=== PATIENT | male | born 1965 | race African-American/Black ===

== ENCOUNTER 2016-06-09 12:28 | Emergency (ER) | payer BC ==
[~2016-06-09] VITALS: Ht 188 cm; Wt 99.8 kg
[~2016-06-09 12:28] MED LIST: MEDROL 4MG. DOSE4 MG PO
--- OUTSIDE RECORDS SUMMARY | 2016-06-09 12:37 | External Medical Summary Rpt ---
Demographics Preferred Language Unknown Marital Status Unknown Zoroastrian Affiliation Unknown Race Unknown Ethnic Group Unknown Author Author [facility]IZABETH Box, [facility] [employer] Organization [facility] [employer] Address Unknown Phone Unavailable
--- OUTSIDE RECORDS SUMMARY | 2016-06-09 12:37 | External Medical Summary Rpt ---
Demographics Preferred Language French Marital Status Unknown Jehovah'S Witness Affiliation Unknown Race Unknown Ethnic Group Unknown Author Author , Organization [employer] Address Unknown Phone Unavailable Purpose Continuity of Care Document - through 2016 Immunization No patient found.
--- OUTSIDE RECORDS SUMMARY | 2016-06-09 12:37 | External Medical Summary Rpt ---
Author Author [employer] Organization [employer] Address Unknown Phone Unavailable Purpose Continuity of Care Document - through 2016
--- OUTSIDE RECORDS SUMMARY | 2016-06-09 12:37 | External Medical Summary Rpt ---
Demographics Preferred Language Wallisian Marital Status Unknown Restorationist Affiliation Unknown Race Unknown Ethnic Group Unknown Author Author , Organization [employer] Address Unknown Phone Unavailable Purpose Continuity of Care Document - through 2016
--- OUTSIDE RECORDS SUMMARY | 2016-06-09 12:37 | External Medical Summary Rpt ---
Demographics Preferred Language German Marital Status Unknown Confucianism Affiliation Unknown Race Unknown Ethnic Group Unknown Author Author , Organization [employer] Address Unknown Phone Unavailable Purpose Continuity of Care Document - through 2016
--- OUTSIDE RECORDS SUMMARY | 2016-06-09 12:37 | External Medical Summary Rpt ---
Demographics Preferred Language Sami Marital Status Unknown Evangelical Affiliation Unknown Race Unknown Ethnic Group Unknown Author Author , Organization [employer] Address Unknown Phone Unavailable Purpose Continuity of Care Document - through 2016 Immunization No patient found.
--- OUTSIDE RECORDS SUMMARY | 2016-06-09 12:37 | External Medical Summary Rpt ---
Demographics Preferred Language Unknown Marital Status Unknown Scientologist Affiliation Unknown Race Unknown Ethnic Group Unknown Author Author ELIZABETH Box, [employer] [employer] Organization [employer] Address Unknown Phone Unavailable
--- NOTE | 2016-06-09 12:50 | Urgent Treatment Center Report ---
History of Present Issue Date/Time Seen by Provider 06/09/16 1244 Visit Reason Pt arrived:Walked Presenting Problem:PT WANTED TO F/U FOR A DX OF GOUT IN HIS HAND. PT ADVISES THAT HE IS STILL UNABLE TO GO TO WORK Location if Accident: Onset of symptoms date/time:/ or onset unknown for:MEDICAL HX UNKNOWN Have you (or family members/close friends) recently traveled outside the [place]? N If Yes, where/when: Have you had exposure to infectious disease within the past month? TB? Other? Specify: Patient states that he was told to follow up in a couple days for gout in his left Hand. Fawntent states that hand is still swollen however it is better than what it was when he was first seen. 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 No Angina: No [place]: No Hypertension? Yes Hyperlipidemia? No CHF? No DVT? No PE? No COPD? No Asthma? No Anemia? No GERD? No Gastric ulcers? No GI Bleed? No Hernia? No Thyroid Problems? No Hypothyroidism? No CVA? No Seizures? No Diabetes? No Renal Insuffiency? No UTI? No Stones? No BPH? No GB Disease: No Nephritic Syndrome? No Asplenia? No Hepatitis? No Sickle Cell Disease? No Arthritis? No Migraines? No Cataracts? No Glaucoma? No MRSA? No HIV? No TB? No Anxiety? No Depression? No Cancer? No More? 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 No: respiratory distress. Cardiovascular normal exam, regular rate/rhythm, no peripheral edema Neurologic alert, manager voice II-XII nml as tested, normal exam, no motor/sensory deficits, oriented x 3 Comments Patient state that he was recently seen for gout flare, states that hand is doing much better however still swollen and hard to close hand Medical Decision Making LABS/Meds/Orders Pt receiving controlled substance in ED? 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 Departure Departure Time of Disposition 1246 Disposition DC Home or Self Care(routine) Clinical Impression Primary Impression: Gout flare Qualifiers: Gout site: hand Gout etiology: unspecified cause Laterality: left Qualified Code: M10.9 - Gout, unspecified Condition STABLE Patient Instructions DI for Gout, Gout (Alternative Therapy) Additional Instructions Obtain family doctor the list that was provided to monitor and treat current chronic conditions Return if needed Continue taking medication as prescribed Discharge Counseling Counseled pt/family regarding diagnosis, home care, follow up needs at [phone]
--- NOTE | 2016-06-09 12:50 | Urgent Treatment Center Report ---
History of Present Issue Date/Time Seen by Provider 06/09/16 1244 Visit Reason Pt arrived:Walked Presenting Problem:PT WANTED TO F/U FOR A DX OF GOUT IN HIS HAND. PT ADVISES THAT HE IS STILL UNABLE TO GO TO WORK Location if Accident: Onset of symptoms date/time:/ or onset unknown for:MEDICAL HX UNKNOWN Have you (or family members/close friends) recently traveled outside the [place]? N If Yes, where/when: Have you had exposure to infectious disease within the past month? TB? Other? Specify: Patient states that he was told to follow up in a couple days for gout in his left Hand. Fawntent states that hand is still swollen however it is better than what it was when he was first seen. 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 No Angina: No [place]: No Hypertension? Yes Hyperlipidemia? No CHF? No DVT? No PE? No COPD? No Asthma? No Anemia? No GERD? No Gastric ulcers? No GI Bleed? No Hernia? No Thyroid Problems? No Hypothyroidism? No CVA? No Seizures? No Diabetes? No Renal Insuffiency? No UTI? No Stones? No BPH? No GB Disease: No Nephritic Syndrome? No Asplenia? No Hepatitis? No Sickle Cell Disease? No Arthritis? No Migraines? No Cataracts? No Glaucoma? No MRSA? No HIV? No TB? No Anxiety? No Depression? No Cancer? No More? 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 No: respiratory distress. 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 Departure Departure Time of Disposition 1246 Disposition DC Home or Self Care(routine) Clinical Impression Primary Impression: Gout flare Qualifiers: Gout site: hand Gout etiology: unspecified cause Laterality: left Qualified Code: M10.9 - Gout, unspecified Condition STABLE Patient Instructions DI for Gout, Gout (Alternative Therapy) Additional Instructions Obtain family doctor the list that was provided to monitor and treat current chronic conditions Return if needed Continue taking medication as prescribed Discharge Counseling Counseled pt/family regarding diagnosis, home care, follow up needs at [phone]
[2016-06-09 13:01] VITALS: BP 156/111
[2016-06-17] MEDS ORDERED: COLCRYS0.6 M1 PO (20:19)
[2016-06-17] MEDS ORDERED: PREDNISONE 20MG20 MG PO (20:19)
== END 2016-06-09 13:02 | disposition home or self-care (01) ==
LOC: UTC 12:28
DX: M10.9 Gout, unspecified (principal); I10 Essential (primary) hypertension

== ENCOUNTER → 2016-06-22 | Outpatient (CLI) | payer BC ==
[~2016-06-22] MED LIST changes: +COLCRYS0.6 M1 PO; +PREDNISONE 20MG20 MG PO
[2016-06-22 15:28] LABS: HEMOGLOBIN 16.6 g/dL (14.1-18.0); LYMPH # 1.4 K/mm3 (0.7-4.5); LYMPH % 11.2 % (10-50)
[2016-06-22 18:26] LABS: BUN 16 mg/dL (7-18)
[2016-06-22 18:28] LABS: GFR (ESTIMATED) 70 ML/MIN (>60)
[2016-06-24 08:55] LABS: Creatinine, Urine 192.8 mg/dL (Not Estab.); Microalbumin, Urine 45.7 ug/mL (Not Estab.)
== END ==
LOC: LAB 15:11
PROVIDERS: Nurse Practitioner Family
DX: Z00.00 Encounter for general adult medical examination without abnormal findings (principal); N18.9 Chronic kidney disease, unspecified; M10.9 Gout, unspecified

== ENCOUNTER → 2016-08-02 | Outpatient (CLI) | payer BC ==
[~2016-08-02] MED LIST changes: +PREDNISONE 10MG10 MG PO
[2016-08-02 13:52] LABS: BUN 21 mg/dL (7-18); GFR (ESTIMATED) 53 ML/MIN (>60)
== END ==
LOC: LAB 11:13
PROVIDERS: Nurse Practitioner Family
DX: I10 Essential (primary) hypertension (principal)

== ENCOUNTER → 2016-10-15 | Day surgery (SDC) | payer BC ==
[2016-10-15 08:09] LABS: LYMPH % 47.6 % (10-50)
[2016-10-15 08:14] LABS: HEMOGLOBIN 14.2 g/dL (14.1-18.0)
[2016-10-15 08:17] LABS: BUN 23 mg/dL (7-18)
[2016-10-15 08:21] LABS: GFR (ESTIMATED) 45 ML/MIN (>60)
--- NOTE | 2016-10-15 11:12 | RADIOLOGY REPORT PS360 ---
CARDIAC CATHETERIZATION DATE OF CATHETERIZATION:10/15/2016 10:09 AM PROCEDURES: 1. Left heart catheterization 2. Left ventriculogram 3. Selective coronary angiogram INDICATION FOR TEST: 1. Abnormal high risk Myoview 2. Abnormal EKG Informed consent was obtained prior to the procedure. COMPLICATIONS: None ESTIMATED BLOOD LOSS: Less than 10 ml. TECHNIQUE: One percent lidocaine used to anesthetize the right anterior aspect of the wrist. The right radial artery was accessed via the Seldinger technique. A 6 German sheath was placed in the right radial artery. 2.5 mg of verapamil, 800 mcg of nitroglycerin and 5000 U Heparin were given through the arterial sheath. The Rebecca catheter was also used to perform left heart catheterization and left ventriculography. At the end of the procedure the patient was transferred to the post-op holding area in stable condition for arterial sheath removal. ANGIOGRAPHIC RESULTS: 1. The left main artery normal 2. The left anterior descending artery is proximally normal and then has a 20% smooth stenosis after the first septal fermenter wine 3. The circumflex artery is nondominant and has a mild mid vessel 10% nonflow limiting stenosis 4. The right coronary artery is dominant and has a mid vessel 10% stenosis in the distal 10% stenosis 5. The TOMLINSON ventriculogram reveals normal 60% 6. The left ventricular end-diastolic pressure 15 mmHg IMPRESSION: 1. Nonflow limiting coronary artery disease . 2. Normal ejection fraction 3. Mildly elevated LVEDP PLAN: 1. Risk factor modification 2. Daily baby aspirin 3. LDL less than 55
--- NOTE | 2016-10-15 11:12 | RADIOLOGY REPORT PS360 ---
CARDIAC CATHETERIZATION DATE OF CATHETERIZATION:10/15/2016 10:09 AM PROCEDURES: 1. Left heart catheterization 2. Left ventriculogram 3. Selective coronary angiogram INDICATION FOR TEST: 1. Abnormal high risk Myoview 2. Abnormal EKG Informed consent was obtained prior to the procedure. COMPLICATIONS: None ESTIMATED BLOOD LOSS: Less than 10 ml. TECHNIQUE: One percent lidocaine used to anesthetize the right anterior aspect of the wrist. The right radial artery was accessed via the Seldinger technique. A 6 [place] sheath was placed in the right radial artery. 2.5 mg of verapamil, 800 mcg of nitroglycerin and 5000 U Heparin were given through the arterial sheath. The Rebecca catheter was also used to perform left heart catheterization and left ventriculography. At the end of the procedure the patient was transferred to the post-op holding area in stable condition for arterial sheath removal. ANGIOGRAPHIC RESULTS: 1. The left main artery normal 2. 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 The circumflex artery is nondominant and has a mild mid vessel 10% nonflow limiting stenosis 4. The right coronary artery is dominant and has a mid vessel 10% stenosis in the distal 10% stenosis 5. The TOMLINSON ventriculogram reveals normal 60% 6. The left ventricular end-diastolic pressure 15 mmHg IMPRESSION: 1. Nonflow limiting coronary artery disease . 2. Normal ejection fraction 3. Mildly elevated LVEDP PLAN: 1. Risk factor modification 2. Daily baby aspirin 3. LDL less than 55
[2016-10-15 14:35] VITALS: BP 105/72
== END ==
LOC: CATHLAB 07:31
PROVIDERS: Internal Medicine
PROC: B2111ZZ Fluoroscopy of Multiple Coronary Arteries using Low Osmolar Contrast (ICD-10-PCS; 2016-10-15)
PROC: B2151ZZ Fluoroscopy of Left Heart using Low Osmolar Contrast (ICD-10-PCS; 2016-10-15)
PROC: 4A023N7 Measurement of Cardiac Sampling and Pressure, Left Heart, Percutaneous Approach (ICD-10-PCS; principal; 2016-10-15 08:30)
DX: R07.9 Chest pain, unspecified (principal); I42.9 Cardiomyopathy, unspecified; R94.31 Abnormal electrocardiogram [ECG] [EKG]; R94.39 Abnormal result of other cardiovascular function study; I10 Essential (primary) hypertension
CPT/HCPCS: C1725; C1769; J1644; Q9967

== ENCOUNTER 2016-10-25 17:22 | Emergency (ER) | payer BC ==
[~2016-10-25] VITALS: Ht 188 cm; Wt 97.5 kg
[2016-10-25 18:31] LABS: HEMOGLOBIN 13.7 g/dL (14.1-18.0); LYMPH # 1.7 K/mm3 (0.7-4.5); LYMPH % 34.9 % (10-50)
--- NOTE | 2016-10-25 18:48 | Emergency Room Report ---
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 N Clinical Suspician of Infection? N Mental Status: 1 - Regular (Normal Baseline) Sepsis Risk:Low Sepsis Risk Have you (or family members/close friends) recently traveled outside the [place]? N If Yes, where/when: Have you had exposure to infectious disease within the past month? N TB? Other? Specify: Chest pain episode last night at rest, lasted ten minutes then resolved; SS, nonradiating, no n/v, no diaphoresis, no SOB, no calf pain, had a LHC on 10/15/[address] flow. Pt of Dr. Danielson, non smoker, has HTN, denies DM, reports hyperlipidemia, unknown FH on dad's side, thinks maybe mom had CAD. He had a similar epsiode at around 15:30 today that also lasted a few minutes at rest. No complaints now. Ate a lot of BBQ today. Patient states he has been directed to decrease his Lisinopril by Dr. Danielson. ALLERGIES Coded Allergies: No Known Allergies (06/07/16) Home Medications Active Scripts Prednisone (Prednisone 10MG) 1 Dose PO DAILY #21 TAB Prov: 08/04/16 History Medical History General CAD? No Angina: No [place]: No Hypertension? Yes Hyperlipidemia? No CHF? No DVT? No PE? No COPD? No Asthma? No Anemia? No GERD? No Gastric ulcers? No GI Bleed? No Hernia? No Thyroid Problems? No Hypothyroidism? No CVA? No Seizures? No Diabetes? No Renal Insuffiency? No End Stage Renal Disease? No UTI? No Stones? No BPH? No GB Disease: No Nephritic Syndrome? No Asplenia? No Hepatitis? No Sickle Cell Disease? No Arthritis? No Migraines? No Cataracts? No Glaucoma? No MRSA? No HIV? No TB? No Anxiety? No Depression? No Cancer? No More? 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 Immunization Hx DT/Tetanus Unknown Flu Refused Pneumonia Refuses Surgical Hx Previous Surgery?Y R KNEE ORTHOSCOPY Family History Family Hx Diabetes No CAD No Hypertension No Hyperlipidemia No Cancer No TB No Social History Smoking Hx Smoker: Never Smoker Tobacco: No Are you/the child exposed to second-hand smoke: No Alcohol Alcohol: No Review of Systems All Other Systems Reviewed and Negative Cardiovascular see HPI Physical Exam Vital Signs Vital Signs Date Time Temp Pulse Resp B/P Pulse O2 O2 Flow FiO2 Ox Delivery Rate 10/26 1935 74 16 164/121 100 10/25 1840 74 16 167/117 99 10/25 1802 56 16 188/91 96 10/25 1723 98.9 80 18 173/120 100 General Appearance normal appearance, WD/WN, no apparent distress Eye Exam - bilateral eye normal exam, bilateral eye PERRL, bilateral eye EOMI Neck normal inspection, non-tender, supple, full range of motion Respiratory Status Yes: trachea midline, chest symmetrical, non tender chest. No: respiratory distress, tender on palpation, use of accessory muscles, pain on inspiration, pain on expiration, productive cough, non productive cough. Lung Sounds bilateral: normal breath sounds, lungs clear. Cardiovascular normal exam, regular rate/rhythm, no peripheral edema, no gallop, no JVD, no murmur, no rub, normal peripheral pulses Gastrointestinal normal bowel sounds, normal exam, non tender, soft, no organomegaly, no pulsatile mass, no guarding, no rebound Extremities non-tender, normal range of motion, normal inspection, no calf tenderness, no pedal edema Strength 5 Upper Ext (L), 5 Upper Ext (R), 5 Lower Ext (L), 5 Lower Ext (R) Neurologic alert, normal exam, no motor/sensory deficits, oriented x 3 Glascow Coma Scale Glascow Coma Scale Response Value EYE response: 4 Spontaneously 4 MOTOR response: 6 OBEYS 6 VERBAL response: 5 Oriented & Converses 5 Total 15 Skin intact, normal color, warm/dry Medical Decision Making LABS/Meds/Orders Pt receiving controlled substance in ED? No Results/Orders Laboratory Tests 10/25/161929: Troponin I < 0.02 10/25/161842: Troponin I Cancelled 10/25/160: Sodium 144, Potassium 3.6, Chloride 108 H, Carbon Dioxide 28, BUN 21 H, Creatinine 1.5 H, Estimated Creat Clear 79, Estimated GFR (MDRD) 49, Glucose 103, Calcium 8.9, Total Bilirubin 0.5, AST 12 L, ALT 17, Alkaline Phosphatase 90, Creatine Kinase 196, CK-MB (CK-2) Rel Index 0.4, CK and CKMB Interp 0.7, Troponin I < 0.02, Total Protein 7.0, Albumin 3.7, Globulin 3.3 H, Albumin/ Globulin Ratio 1.1, WBC 4.9, RBC 5.03, Hgb 13.7 L, Hct 40.1 L, MCV 79.8 L, RDW 13.1, Plt Count 214, MPV 8.5, Gran % 53.3, Gran # 2.6, Lymphocytes % 34.9, Monocytes % 9.0, Eosinophils % 1.9, Basophils % 0.9, Lymphocytes # 1.7, Monocytes # 0.4, Eosinophils # 0.1, Basophils # 0.0, PUBS MCHC 34.1, MCH 27.3 Current Medication Orders Sig/Feliciano Start time Last Medication Dose Route Stop Time Status Admin Clonidine HCl 0 .STK-MED ONE 10/25 190 DC .ROUTE Clonidine HCl 0.1 MG ONCE ONE 10/25 1845 DC 10/25 PO 10/25 1846 1907 Aspirin 243 MG ONCE ONE 10/25 1745 DC 10/25 PO 10/25 1746 1738 Sodium Chloride 10 ML PRN PRN 10/25 174 AC IV 10/26 173 Aspirin 0 .STK-MED ONE 10/25 173 DC .ROUTE Orders Procedure Date/time Status TROPONIN I 10/25 1930 Complete 12 LEAD EKG-HEIDI (INITIAL) 10/25 173 Active ELECTROCARDIOGRAM REQUEST 10/25 173 Active CHEST(2 VIEWS-NOT PORTABLE) 10/25 173 Active IV SALINE LOCK 10/25 173 Active CBC WITH AUTO DIFF 10/25 173 Complete CARDIAC ENZYMES 10/25 173 Complete CHEM 12 PROFILE 10/25 1735 Complete CM/EKG CM/EKG EKG rate (no change from 09/15/16), NSR, rhythm, no ectopy, normal QRS, normal [place], normal EKG (bifasc. block) XRAY/CT/US XRAY/CT/US XRAY chest XR interpretation by reviewed by me Xray Results normal/NAD, no fracture seen, no infiltrates, normal heart size, normal lung inflation luis miguel Progress ED Progress Notes 1 Date 10/25/16 Time 2003 Comment Pt advised to increase his Lisinopril from BID to TID and to have BP rechecked in 24 hours by Deloris and also keep appointment in four days with Dr. Danielson ED Progress Notes 2 Date 10/25/16 Time 2005 Comment No chest pain; no complaints; stable at d/c Departure Departure Time of Disposition 2003 Disposition DC Home or Self Care(routine) Clinical Impression Primary Impression: Angina at rest Condition STABLE Referrals Aleksandra BRIDGES,Jasbir Danielson MD, [place] Patient Instructions Angina Additional Instructions Increase your Lisinopril from twice daily to three times daily, have Deloris recheck blood pressure in 1-2 days, and keep your appointment with Dr. Danielson for four days from now. Discharge Counseling Counseled pt/family regarding diagnosis, test results, medications/RX, home care, follow up needs ED Critical Care Critical Care No at 2006
[2016-10-25 18:56] LABS: BUN 21 mg/dL (7-18)
[2016-10-25 18:58] LABS: GFR (ESTIMATED) 49 ML/MIN (>60)
[2016-10-25 20:10] VITALS: BP 164/114
--- NOTE | 2016-10-25 23:36 | RADIOLOGY REPORT PS360 ---
CHEST(2 VIEWS-NOT PORTABLE) HISTORY: Chest pain PAIN ORDERING PHYSICIAN: Nilda Henderson MD PATIENT AGE: 51 years COMPARISON: None available FINDINGS: The cardiomediastinal silhouette and pulmonary vascularity are within normal limits. On the lateral view there is increased density over the age or hilar area. This may limited due to vessel overlap. A hilar mass or pneumonia is not excluded. There is reversal of the lower thoracic kyphosis. IMPRESSION: Increased density over the intercondylar hilum on the lateral view which could be due to summation density, pneumonia, or mass. Follow-up radiograph recommended. If this persists then, CT may be needed for further evaluation
--- OUTSIDE RECORDS SUMMARY | 2016-11-17 07:03 | External Medical Summary Rpt ---
Demographics Preferred Language Sami Marital Status Unknown Sikh Affiliation Unknown Race Unknown Ethnic Group Unknown Author Author ELIZABETH Address Unknown Phone Immunization No patient found.
--- OUTSIDE RECORDS SUMMARY | 2016-11-17 07:03 | External Medical Summary Rpt ---
Author Author ELIZABETH Address Unknown Phone [email or web address] Purpose Continuity of Care Document - 06-22-2016 through 2016 Problems Code Diagnosis DOS Provider Status I20.8 OTHER FORMS OF ANGINA PECTORIS
--- OUTSIDE RECORDS SUMMARY | 2016-11-17 07:03 | External Medical Summary Rpt ---
Author Author ELIZABETH Address Unknown Phone [email or web address] Purpose Continuity of Care Document - 06-22-2016 through 2016 Problems Code Diagnosis DOS Provider Status I20.8 OTHER FORMS OF ANGINA PECTORIS
--- OUTSIDE RECORDS SUMMARY | 2016-11-17 07:03 | External Medical Summary Rpt ---
Demographics Preferred Language Indonesian Marital Status Unknown Protestant Affiliation Unknown Race Unknown Ethnic Group Unknown Author Author ELIZABETH Address Unknown Phone Immunization No patient found.
--- OUTSIDE RECORDS SUMMARY | 2016-11-17 07:04 | External Medical Summary Rpt ---
Author Author ELIZABETH Production, ELIZABETH Production Organization ELIZABETH [employer] Address Unknown Phone Unavailable Results CBC W Auto Differential panel in Blood Observa Value Referen Units Interpr Notes Date tion ce etation Range Basophils 0 - 0.2 K/MM3 Normal No Sep 18 informati 2017 5:30 [#/volume on in PM ] in source Blood by data Automated count Basophils 0.1 - 2.0 % Normal No Sep 18 /100 informati 2017 5:30 leukocyte on in PM s in source Blood by data Automated count Eosinophi 0.0 - 0.4 K/mm3 Normal No Sep 18 ls informati 2017 5:30 [#/volume on in PM ] in source Blood by data Automated count Eosinophi 0.1 - % Normal No Sep 18 ls/100 12.0 informati 2017 5:30 leukocyte on in PM s in source Blood by data Automated count Granulocy 1.3 - 8.0 K/mm3 Normal No Sep 18 sapna informati 2017 5:30 [#/volume on in PM ] in source Blood by data Automated count Granulocy 37.0 - % Normal No Sep 18 sapna/100 80.0 informati 2017 5:30 leukocyte on in PM s in source Blood by data Automated count Hematocri 42.0 - % Low No Sep 18 t [Volume 52.0 informati 2017 5:30 on in PM Fraction] source of Blood data Hemoglobi 14.1 - g/dL Low No Sep 18 n 18.0 informati 2017 5:30 [Mass/vol on in PM ume] in source Blood data Lymphocyt 0.7 - 4.5 K/mm3 Normal No Sep 18 es informati 2017 5:30 [#/volume on in PM ] in source Unspecifi data ed specimen by Automated count Lymphocyt 10 - 50 % Normal No Sep 18 es informati 2017 5:30 [#/volume on in PM ] in source Unspecifi data ed specimen by Automated count Erythrocy 27 - 31.2 pg Normal No Sep 18 te mean informati 2016 5:30 corpuscul on in PM ar source hemoglobi data n [Entitic mass] Erythrocy 31.8 - g/dl Normal No Sep 18 te mean 35.4 informati 2017 5:30 corpuscul on in PM ar source hemoglobi data n concentra tion [Mass/vol ume] by Automated count Erythrocy 82.2 - fl Low No Sep 18 te mean 97.8 informati 2016 5:30 corpuscul on in PM ar volume source [Entitic data volume] by Automated count Monocytes 0.1 - 1.0 K/mm3 Normal No Sep 18 informati 2017 5:30 [#/volume on in PM ] in source Blood by data Automated count Monocytes 1.7 - 9.3 % Normal No Sep 18 /100 informati 2017 5:30 leukocyte on in PM s in source Blood by data Automated count Platelet 7.4 - fl Normal No Sep 18 mean 10.4 informati 2016 5:30 volume on in PM [Entitic source volume] data in Blood by Automated count Platelets 142 - 424 K/mm3 Normal No Sep 18 informati 2017 5:30 [#/volume on in PM ] in source Blood data Erythrocy 4.6 - 6.2 M/mm3 Normal No Sep 18 sapna informati 2017 5:30 [#/volume on in PM ] in source Amniotic data fluid Erythrocy 11.5 - % Normal No Sep 18 te 17.5 informati 2016 5:30 distribut on in PM ion width source [Entitic data volume] by Automated count Leukocyte 4.8 - K/MM3 Normal No Sep 18 s 10.8 informati 2016 5:30 [#/volume on in PM ] in source Blood data Basic metabolic panel in Blood Observa Value Referen Units Interpr Notes Date tion ce etation Range Urea 7 - 18 mg/dL High No Sep 8 nitrogen informati 2017 7:55 [Mass/vol on in AM ume] in source Serum or data Plasma Calcium 8.5 - mg/dL Normal No Sep 8 [Mass/vol 10.1 informati 2017 7:55 ume] in on in AM Serum or source Plasma data Chloride 98 - 107 mmoL/L Normal No Sep 8 [Moles/vo informati 2017 7:55 lume] in on in AM Serum or source Plasma data Carbon 21.0 - mmoL/L High No Sep 8 dioxide, 32.0 informati 2017 7:55 total on in AM [Moles/vo source lume] in data Serum or Plasma Creatinin 0.70 - mg/dL High No Sep 8 e 1.30 informati 2017 7:55 [Mass/vol on in AM ume] in source Serum or data Plasma Estimated >60 ML/MIN No REFERENCE Sep 8 informati RANGE: 2017 7:55 glomerula on in >60 AM r source ML/MIN/1. filtratio data 73 SQUARE n rate METERSIf (GF this patient is -A merican, then multiply theresult by 1.210. Glucose 74 - 106 mg/dL Normal No Sep 8 [Mass/vol informati 2017 7:55 ume] in on in AM Serum or source Plasma data Potassium 3.5 - 5.1 mmoL/L Normal No Sep 8 informati 2017 7:55 [Moles/vo on in AM lume] in source Serum or data Plasma Sodium 136 - 145 mmoL/L Normal No Sep 8 [Moles/vo informati 2017 7:55 lume] in on in AM Serum or source Plasma data CBC W Auto Differential panel in Blood Observa Value Referen Units Interpr Notes Date tion ce etation Range Basophils 0 - 0.2 K/MM3 Normal No Sep 8 informati 2017 7:55 [#/volume on in AM ] in source Blood by data Automated count Basophils 0.1 - 2.0 % Normal No Sep 8 /100 informati 2017 7:55 leukocyte on in AM s in source Blood by data Automated count Eosinophi 0.0 - 0.4 K/mm3 Normal No Sep 8 ls informati 2017 7:55 [#/volume on in AM ] in source Blood by data Automated count Eosinophi 0.1 - % Normal No Sep 8 ls/100 12.0 informati 2017 7:55 leukocyte on in AM s in source Blood by data Automated count Granulocy 1.3 - 8.0 K/mm3 Normal No Sep 8 sapna informati 2017 7:55 [#/volume on in AM ] in source Blood by data Automated count Granulocy 37.0 - % Normal No Sep 8 sapna/100 80.0 informati 2017 7:55 leukocyte on in AM s in source Blood by data Automated count Hematocri 42.0 - % Low No Sep 8 t [Volume 52.0 informati 2017 7:55 on in AM Fraction] source of Blood data Hemoglobi 14.1 - g/dL No No Sep 8 n 18.0 informati informati 2017 7:55 [Mass/vol on in on in AM ume] in source source Blood data data Lymphocyt 0.7 - 4.5 K/mm3 Normal No Sep 8 es informati 2017 7:55 [#/volume on in AM ] in source Unspecifi data ed specimen by Automated count Lymphocyt 10 - 50 % Normal No Sep 8 es informati 2017 7:55 [#/volume on in AM ] in source Unspecifi data ed specimen by Automated count Erythrocy 27 - 31.2 pg Normal No Sep 8 te mean informati 2017 7:55 corpuscul on in AM ar source hemoglobi data n [Entitic mass] Erythrocy 31.8 - g/dl Normal No Sep 8 te mean 35.4 informati 2017 7:55 corpuscul on in AM ar source hemoglobi data n concentra tion [Mass/vol ume] by Automated count Erythrocy 82.2 - fl Low No Sep 8 te mean 97.8 informati 2016 7:55 corpuscul on in AM ar volume source [Entitic data volume] by Automated count Monocytes 0.1 - 1.0 K/mm3 Normal No Sep 8 informati 2017 7:55 [#/volume on in AM ] in source Blood by data Automated count Monocytes 1.7 - 9.3 % Normal No Sep 8 /100 informati 2017 7:55 leukocyte on in AM s in source Blood by data Automated count Platelet 7.4 - fl Normal No Sep 8 mean 10.4 informati 2016 7:55 volume on in AM [Entitic source volume] data in Blood by Automated count Platelets 142 - 424 K/mm3 No No Sep 8 informati informati 2017 7:55 [#/volume on in on in AM ] in source source Blood data data Erythrocy 4.6 - 6.2 M/mm3 Normal No Sep 8 sapna informati 2016 7:55 [#/volume on in AM ] in source Amniotic data fluid Erythrocy 11.5 - % Normal No Sep 8 te 17.5 informati 2016 7:55 distribut on in AM ion width source [Entitic data volume] by Automated count Leukocyte 4.8 - K/MM3 Low No Sep 8 s 10.8 informati 2016 7:55 [#/volume on in AM ] in source Blood data Urate [Mass/volume] in Serum or Plasma Observa Value Referen Units Interpr Notes Date tion ce etation Range Urate 2.6 - 7.2 mg/dL High No Aug 04 [Mass/vol informati 2016 6:31 ume] in on in PM Serum or source Plasma data Comprehensive metabolic 2000 panel in Serum or Plasma Observa Value Referen Units Interpr Notes Date tion ce etation Range Albumin/G 1.1 - 1.8 No Normal No Aug 02 lobulin informati informati 2016 [Mass on in on in 11:14 AM ratio] in source source Serum or data data Plasma Albumin 3.4 - 5.0 gm/dL Normal No Aug 02 [Mass/vol informati 2016 ume] in on in 11:14 AM Serum or source Plasma data Alkaline 46 - 116 U/L Normal No Aug 02 phosphata informati 2016 se on in 11:14 AM [Enzymati source c data activity/ volume] in Serum or Plasma Bilirubin 0.2 - 1.0 mg/dL Normal No Aug 02 .total informati 2016 [Mass/vol on in 11:14 AM ume] in source Serum or data Plasma Urea 7 - 18 mg/dL High No Aug 02 nitrogen informati 2016 [Mass/vol on in 11:14 AM ume] in source Serum or data Plasma Calcium 8.5 - mg/dL Normal No Aug 02 [Mass/vol 10.1 informati 2016 ume] in on in 11:14 AM Serum or source Plasma data Chloride 98 - 107 mmoL/L Normal No Aug 02 [Moles/vo informati 2016 lume] in on in 11:14 AM Serum or source Plasma data Carbon 21.0 - mmoL/L Normal No Aug 02 dioxide, 32.0 informati 2016 total on in 11:14 AM [Moles/vo source lume] in data Serum or Plasma Creatinin 0.70 - mg/dL High No Aug 02 e 1.30 informati 2016 [Mass/vol on in 11:14 AM ume] in source Serum or data Plasma Estimated >60 ML/MIN No REFERENCE Aug 02 informati RANGE: 2017 glomerula on in >60 11:14 AM r source ML/MIN/1. filtratio data 73 SQUARE n rate METERSIf (GF this patient is -A merican, then multiply theresult by 1.210. Globulin 1.3 - 3.2 gm/dL High No Aug 02 [Mass/vol informati 2016 ume] in on in 11:14 AM Serum source data Glucose 74 - 106 mg/dL Normal No Aug 02 [Mass/vol informati 2016 ume] in on in 11:14 AM Serum or source Plasma data Potassium 3.5 - 5.1 mmoL/L Low alert Aug 02 2016 [Moles/vo CRITICAL 11:14 AM lume] in RESULTS Serum or Plasma RESU LTS CALLED TO: ADOLPH HEIDI 08/02/16 1352 [facility] Sodium 136 - 145 mmoL/L Normal No Aug 02 [Moles/vo informati 2016 lume] in on in 11:14 AM Serum or source Plasma data Aspartate 15 - 37 U/L Normal No Aug 022016 aminotran on in 11:14 AM sferase source [Enzymati data c activity/ volume] in Serum or Plasma Alanine 12 - 78 U/L Normal No Aug 02 aminotran inform2016 sferase on in 11:14 AM [Enzymati source c data activity/ volume] in Serum or Plasma Protein 6.4 - 8.2 gm/dL Normal No Aug 02 [Mass/vol informati 2016 ume] in on in 11:14 AM Serum or source Plasma data Microalb/Creat Ratio, Randm Ur Observa Value Referen Units Interpr Notes Date tion ce etation Range Microalbu Not ug/mL No No June 22 min Estab. informati informati 2017 3:12 [Mass/vol on in on in PM ume] in source source Urine data data Albumin/C 0.0 - No No INFCE June 22 reatinine 30.0 informati informati Result 2017 3:12 [Mass on in on in Units: PM ratio] in source source mg/g Urine data data creatPerf ormed at: - [facility] [address] [id number] [address] [place], [place] [id number] Relay Assembler: Richar Tomlinson PhD, Phone: [phone] Creatinin Not mg/dL No No June 22 e Estab. informati informati 2017 3:12 [Mass/vol on in on in PM ume] in source source Urine data data Comprehensive metabolic 2000 panel in Serum or Plasma Observa Value Referen Units Interpr Notes Date tion ce etation Range Albumin/G 1.1 - 1.8 No Low No June 22 lobulin informati informati 2016 3:12 [Mass on in on in PM ratio] in source source Serum or data data Plasma Albumin 3.4 - 5.0 gm/dL Normal No June 22 [Mass/vol informati 2016 3:12 ume] in on in PM Serum or source Plasma data Alkaline 46 - 116 U/L Normal No June 22 phosphata informati 2016 3:12 se on in PM [Enzymati source c data activity/ volume] in Serum or Plasma Bilirubin 0.2 - 1.0 mg/dL Normal No June 22 .total informati 2016 3:12 [Mass/vol on in PM ume] in source Serum or data Plasma Urea 7 - 18 mg/dL Normal No June 22 nitrogen informati 2016 3:12 [Mass/vol on in PM ume] in source Serum or data Plasma Calcium 8.5 - mg/dL Normal No June 22 [Mass/vol 10.1 informati 2016 3:12 ume] in on in PM Serum or source Plasma data Chloride 98 - 107 mmoL/L Normal No June 22 [Moles/vo informati 2016 3:12 lume] in on in PM Serum or source Plasma data Carbon 21.0 - mmoL/L Normal No June 22 dioxide, 32.0 informati 2016 3:12 total on in PM [Moles/vo source lume] in data Serum or Plasma Creatinin 0.70 - mg/dL Normal No June 22 e 1.30 informati 2016 3:12 [Mass/vol on in PM ume] in source Serum or data Plasma Estimated >60 ML/MIN No REFERENCE June 22 informati RANGE: 2017 3:12 glomerula on in >60 PM r source ML/MIN/1. filtratio data 73 SQUARE n rate METERSIf (GF this patient is -A merican, then multiply theresult by 1.210. Globulin 1.3 - 3.2 gm/dL High No June 22 [Mass/vol informati 2016 3:12 ume] in on in PM Serum source data Glucose 74 - 106 mg/dL High No June 22 [Mass/vol informati 2016 3:12 ume] in on in PM Serum or source Plasma data Potassium 3.5 - 5.1 mmoL/L Normal No June 222016 3:12 [Moles/vo on in PM lume] in source Serum or data Plasma Sodium 136 - 145 mmoL/L Normal No June 22 [Moles/vo 2016 3:12 lume] in on in PM Serum or source Plasma data Aspartate 15 - 37 U/L Low No June 222016 3:12 aminotran on in PM sferase source [Enzymati data c activity/ volume] in Serum or Plasma Alanine 12 - 78 U/L Normal No June 22 aminotran 2016 3:12 sferase on in PM [Enzymati source c data activity/ volume] in Serum or Plasma Protein 6.4 - 8.2 gm/dL Normal No June 22 [Mass/vol informati 2016 3:12 ume] in on in PM Serum or source Plasma data Lipid 1996 panel in Serum or Plasma Observa Value Referen Units Interpr Notes Date tion ce etation Range Cholester < 200 mg/dL No No June 22 ol informati informati 2016 3:12 [Moles/vo on in on in PM lume] in source source Unspecifi data data ed specimen Cholester 40 - 60 MG/DL High No June 22 ol in HDL informati 2016 3:12 on in PM [Mass/vol source ume] in data Serum or Plasma Cholester 0 - 130 mg/dL Normal No June 22 ol in LDL ati 2016 3:12 on in PM [Mass/vol source ume] in data Serum or Plasma by calculati on Triglycer 30 - 200 mg/dL Normal No June 22 melvina ati 2016 3:12 [Moles/vo on in PM lume] in source Serum or data Plasma Cholester 0 - 40 No Normal No June 22 ol in informati informati 2016 3:12 VLDL on in on in PM [Mass/vol source source ume] in data data Serum or Plasma Urate [Mass/volume] in Serum or Plasma Observa Value Referen Units Interpr Notes Date tion ce etation Range Urate 2.6 - 7.2 mg/dL Normal No June 22 [Mass/vol informati 2016 3:12 ume] in on in PM Serum or source Plasma data CBC W Auto Differential panel in Blood Observa Value Referen Units Interpr Notes Date tion ce etation Range Basophils 0 - 0.2 K/MM3 Normal No June 222016 3:12 [#/volume on in PM ] in source Blood by data Automated count Basophils 0.1 - 2.0 % Normal No June 22 /100 informati 2016 3:12 leukocyte on in PM s in source Blood by data Automated count Eosinophi 0.0 - 0.4 K/mm3 Normal No June 22 ls ati 2016 3:12 [#/volume on in PM ] in source Blood by data Automated count Eosinophi 0.1 - % Normal No June 22 ls/100 12.0 informati 2016 3:12 leukocyte on in PM s in source Blood by data Automated count Granulocy 1.3 - 8.0 K/mm3 High No June 22 sapna informati 2016 3:12 [#/volume on in PM ] in source Blood by data Automated count Granulocy 37.0 - % High No June 22 sapna/100 80.0 informati 2016 3:12 leukocyte on in PM s in source Blood by data Automated count Hematocri 42.0 - % Normal No June 22 t [Volume 52.0 informati 2016 3:12 on in PM Fraction] source of Blood data Hemoglobi 14.1 - g/dL Normal No June 22 n 18.0 ati 2016 3:12 [Mass/vol on in PM ume] in source Blood data Lymphocyt 0.7 - 4.5 K/mm3 Normal No June 22 es 2016 3:12 [#/volume on in PM ] in source Unspecifi data ed specimen by Automated count Lymphocyt 10 - 50 % Normal No June 22 es 2016 3:12 [#/volume on in PM ] in source Unspecifi data ed specimen by Automated count Erythrocy 27 - 31.2 pg Normal No June 22 te mean 2016 3:12 corpuscul on in PM ar source hemoglobi data n [Entitic mass] Erythrocy 31.8 - g/dl Normal No June 22 te mean 35.4 informati 2016 3:12 corpuscul on in PM ar source hemoglobi data n concentra tion [Mass/vol ume] by Automated count Erythrocy 82.2 - fl Normal No June 22 te mean 97.8 informati 2016 3:12 corpuscul on in PM ar volume source [Entitic data volume] by Automated count Monocytes 0.1 - 1.0 K/mm3 Normal No May 16 informati 2017 3:12 [#/volume on in PM ] in source Blood by data Automated count Monocytes 1.7 - 9.3 % Normal No June 22 / informati 2017 3:12 leukocyte on in PM s in source Blood by data Automated count Platelet 7.4 - fl Low No June 22 mean 10.4 informati 2016 3:12 volume on in PM [Entitic source volume] data in Blood by Automated count Platelets 142 - 424 K/mm3 Normal No June 22 informati 2016 3:12 [#/volume on in PM ] in source Blood data Erythrocy 4.6 - 6.2 M/mm3 Normal No June 22 sapna informati 2016 3:12 [#/volume on in PM ] in source Amniotic data fluid Erythrocy 11.5 - % Normal No June 22 te 17.5 informati 2016 3:12 distribut on in PM ion width source [Entitic data volume] by Automated count Leukocyte 4.8 - K/MM3 High No June 22 s 10.8 informati 2016 3:12 [#/volume on in PM ] in source Blood data
--- OUTSIDE RECORDS SUMMARY | 2016-11-17 07:04 | External Medical Summary Rpt ---
[...] data data creatPerf ormed at: - [facility] [address] [address] [address] [place], [place] [id number] Central Office Trouble Shooter: Richar Tomlinson PhD, Phone: [phone] Creatinin Not mg/dL No No June [...]
== END 2016-10-25 20:16 | disposition home or self-care (01) ==
LOC: ER 17:22
PROVIDERS: Emergency Medicine
DX: I20.9 Angina pectoris, unspecified (principal); I10 Essential (primary) hypertension

== ENCOUNTER 2016-11-15 12:53 | Emergency (ER) | payer BC ==
[~2016-11-15] VITALS: Ht 188 cm; Wt 99.8 kg
[2016-11-15] MEDS ORDERED: PREDNISONE 20MG20 MG PO (13:12)
--- NOTE | 2016-11-15 13:14 | Urgent Treatment Center Report ---
History of Present Issue Date/Time Seen by Provider 11/15/16 1307 Visit Reason Pt arrived:Walked Presenting Problem:PT THINKS HE MAY HAVE GOUT IN HIS RIGHT GREAT TOE. PAIN STARTED YESTERDAY Location if Accident: Onset of symptoms date/time:/ or onset unknown for:MEDICAL HX UNKNOWN Have you (or family members/close friends) recently traveled outside the [place]? N If Yes, where/when: Have you had exposure to infectious disease within the past month? TB? Other? Specify: Source patient Exam Limitations no limitations Comment 51-year-old male presents today for gout to his RIGHT great toe. Patient states pain started yesterday and was unable to get shoe on or stand for any period due to pain. Patient reports a history of gout. ALLERGIES Coded Allergies: No Known Allergies (06/07/16) History Medical History General CAD? No Angina: No [place]: No Hypertension? Yes Hyperlipidemia? No CHF? No DVT? No PE? No COPD? No Asthma? No Anemia? No GERD? No Gastric ulcers? No GI Bleed? No Hernia? No Thyroid Problems? No Hypothyroidism? No CVA? No Seizures? No Diabetes? No Renal Insuffiency? No UTI? No Stones? No BPH? No GB Disease: No Nephritic Syndrome? No Asplenia? No Hepatitis? No Sickle Cell Disease? No Arthritis? No Migraines? No Cataracts? No Glaucoma? No MRSA? No HIV? No TB? No Anxiety? No Depression? No Cancer? No More? 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 Immunization HX DT/Tetanus Unknown Flu Refused Pneumonia Refuses Surgical Hx Previous Surgery?Y R KNEE ORTHOSCOPY Family History Family HX Diabetes No CAD No Hypertension No Hyperlipidemia No Cancer No TB No Social History Smoking Hx Smoker: Never Smoker Tobacco: No Alcohol Alcohol: No Review of Systems All Other Systems Reviewed and Negative Constitutional no symptoms reported Musculoskeletal see HPI, joint pain, joint swelling Physical Exam Vital Signs Vital Signs Date Time Temp Pulse Resp B/P Pulse O2 O2 Flow FiO2 Ox Delivery Rate 11/15 1301 98.7 64 16 128/100 98 - WBC >12,000 or <4,000 or 10% bands? 2 or more SIRS Criteria Met? B/P:128/100 MAP:109 Creatinine >2.0? UA output<0.5ml/kg/hr for 2 hrs? Platelet count >100,000? Lactate >2.0mmol/1? INR >1.2 or PTT > than 60 sec? Evidence of Organ Dysfunction? Provider documented clinical suspician of infection? Sepsis Criteria Count: 0 Sepsis Risk: General Appearance normal appearance, no apparent distress Eye Exam - bilateral eye normal exam, bilateral eye PERRL, bilateral eye EOMI Respiratory Status Yes: trachea midline, chest symmetrical, non tender chest. No: respiratory distress. Lung Sounds bilateral: normal breath sounds, lungs clear. Cardiovascular normal exam, regular rate/rhythm, no peripheral edema Peripheral Pulses Pulses normal Yes Extremities swelling, RIGHT great toe with swelling noted at joint Neurologic alert, normal exam, oriented x 3 Medical Decision Making LABS/Meds/Orders Pt receiving controlled substance in ED? No Results/Orders Current Medication Orders Sig/Feliciano Start time Last Medication Dose Route Stop Time Status Admin Dexamethasone Sodium 4 MG ONCE ONE 11/15 1314 AC Phosphate IM 11/16 1315 Ketorolac 30 MG ONCE ONE 11/15 1314 AC Tromethamine IM 11/16 1315 Dexamethasone Sodium 0 .STK-MED ONE 11/15 1309 DC Phosphate .ROUTE Ketorolac 0 .STK-MED ONE 11/15 1309 DC Tromethamine .ROUTE Departure Departure Time of Disposition 1310 Disposition DC Home or Self Care(routine) Clinical Impression Primary Impression: Gout Qualifiers: Gout site: toe Gout etiology: unspecified cause Chronicity: acute Laterality: right Qualified Code: M10.9 - Gout, unspecified Condition STABLE Referrals CAROLYN LEES APRN (Family) Patient Instructions DI for Gout, Gout, Gout (Alternative Therapy) Additional Instructions Medication as ordered No work until Tuesday Tylenol or ibuprofen as needed for pain Follow-up with PCP if no improvement Tuesday His symptoms worsen or do not improve return or be seen in the ER Discharge Counseling Counseled pt/family regarding diagnosis, medications/RX, home care, follow up needs Prescriptions Current Visit Scripts Prednisone (Prednisone 20MG) 20 MG PO BID 5 Days start tomorrow 11/16/16 at 1313
[2016-11-15 13:19] VITALS: BP 128/100
--- OUTSIDE RECORDS SUMMARY | 2016-11-20 02:00 | External Medical Summary Rpt | CCD ---
Author Author , ELIZABETH JOHNSON Address Unknown Phone [email or web address] Purpose Continuity of Care Document - 06-22-2016 through 2016 Problems Code Diagnosis DOS Provider Status I20.8 OTHER FORMS OF ANGINA PECTORIS
--- OUTSIDE RECORDS SUMMARY | 2016-11-20 02:00 | External Medical Summary Rpt | CCD ---
Demographics Preferred Language Citizen Of [place] Marital Status Unknown Spiritism Affiliation Unknown Race Unknown Ethnic Group Unknown Author Author , ELIZABETH JOHNSON Address Unknown Phone Immunization No patient found.
--- OUTSIDE RECORDS SUMMARY | 2016-11-20 02:00 | External Medical Summary Rpt | CCD ---
Author Author , ELIZABETH JOHNSON Address Unknown Phone [email or web address] Purpose Continuity of Care Document - 06-22-2016 through 2016 Problems Code Diagnosis DOS Provider Status I20.8 OTHER FORMS OF ANGINA PECTORIS
--- OUTSIDE RECORDS SUMMARY | 2016-11-20 02:00 | External Medical Summary Rpt | CCD ---
Demographics Preferred Language Faroese Marital Status Unknown Sabianist Affiliation Unknown Race Unknown Ethnic Group Unknown Author Author , ELIZABETH JOHNSON Address Unknown Phone Immunization No patient found.
--- OUTSIDE RECORDS SUMMARY | 2016-11-20 02:00 | External Medical Summary Rpt ---
[...] data data creatPerf ormed at: - [facility] [address] [address] [address] [place], [place] [id number] Rn Orthopedic: Richar Tomlinson PhD, Phone: [phone] Creatinin Not mg/dL No No June [...]
--- OUTSIDE RECORDS SUMMARY | 2016-11-20 02:00 | External Medical Summary Rpt ---
[...] data data creatPerf ormed at: - [facility] [address] [address] [address] [place], [place] [id number] Brick Paver: Richar Tomlinson PhD, Phone: [phone] Creatinin Not mg/dL No No June [...]
== END 2016-11-15 13:20 | disposition home or self-care (01) ==
LOC: UTC 12:53
DX: M10.9 Gout, unspecified (principal)

== ENCOUNTER → 2016-11-18 | Outpatient (CLI) | payer BC ==
[~2016-11-18] MED LIST changes: +ZOFRAN ODT4 MG SL
== END ==
LOC: RT 13:01
DX: I25.10 Atherosclerotic heart disease of native coronary artery without angina pectoris (principal); I20.9 Angina pectoris, unspecified; I10 Essential (primary) hypertension; G47.10 Hypersomnia, unspecified; G47.33 Obstructive sleep apnea (adult) (pediatric); R53.83 Other fatigue

== ENCOUNTER → 2016-11-23 | Outpatient (CLI) | payer BC ==
[~2016-11-23] MED LIST changes: -ZOFRAN ODT4 MG SL
[2016-11-23 12:27] LABS: BUN 20 mg/dL (7-18); GFR (ESTIMATED) 45 ML/MIN (>60)
== END ==
LOC: LAB 10:11
PROVIDERS: Nurse Practitioner Family
DX: I10 Essential (primary) hypertension (principal)

== ENCOUNTER 2016-12-13 10:22 | Emergency (ER) | payer BC ==
[~2016-12-13] VITALS: Ht 190.5 cm; Wt 99.8 kg
--- OUTSIDE RECORDS SUMMARY | 2016-12-13 10:27 | External Medical Summary Rpt | CCD ---
Demographics Preferred Language Jamaican Marital Status Unknown Oriental Orthodox Affiliation Unknown Race Unknown Ethnic Group Unknown Author Author , ELIZABETH JOHNSON Address Unknown Phone Immunization No patient found.
--- OUTSIDE RECORDS SUMMARY | 2016-12-13 10:27 | External Medical Summary Rpt | CCD ---
Demographics Preferred Language Peruvian Marital Status Unknown Methodist Affiliation Unknown Race Unknown Ethnic Group Unknown Author Author , ELIZABETH JOHNSON Address Unknown Phone Immunization No patient found.
--- OUTSIDE RECORDS SUMMARY | 2016-12-13 10:27 | External Medical Summary Rpt | CCD ---
Author Author , ELIZABETH JOHNSON Address Unknown Phone [email or web address] Purpose Continuity of Care Document - 06-22-2016 through 2016 Problems Code Diagnosis DOS Provider Status I20.8 OTHER FORMS OF ANGINA PECTORIS Results Labs Lab Lab Date Result Refere Interp Status Commen Order Detail nces retati t Range on Comprehensive metabolic panel (11-23-2016 10:13) Protein = 6.9 6.4-8.2 complet total 017 gm/dL ed ser/sudheer 10:13 s ALT = 21 12-78 complet (SGPT) 017 U/L ed ser/sudheer 10:13 s Serum = 19 15-37 complet or 017 U/L ed plasma 10:13 asparta te aminotr ansfera Serum = 144 136-145 complet sodium 017 mmoL/L ed measure 10:13 ment Serum = 4.5 3.5-5.1 complet potassi 017 mmoL/L ed um 10:13 measure ment Serum = 105 74-106 complet or 017 mg/dL ed plasma 10:13 glucose measure ment (mas Serum = 3.0 1.3-3.2 complet globuli 017 gm/dL ed n 10:13 measure ment (mass/v olume) Estimat = 45 >60 complet ed 017 ML/MIN ed glomeru 10:13 lar filtrat ion rate (GF Comment: REFERENCE RANGE: >60 ML/MIN/1.73 SQUARE METERS Comment: If this patient is -[place]enezuelan, then multiply the Comment: result by 1.210. Serum = 1.6 0.70-1. complet or 017 mg/dL 30 ed plasma 10:13 creatin ine measure ment ( Carbon = 32 21.0-32 complet dioxide 017 mmoL/L .0 ed 10:13 measure ment Serum = 105 98-107 complet or 017 mmoL/L ed plasma 10:13 chlorid e measure ment (mo Serum = 10.0 8.5-10. complet or 017 mg/dL 1 ed plasma 10:13 calcium measure ment (mas Serum = 20 7-18 complet or 017 mg/dL ed plasma 10:13 urea nitroge n measure men Serum = 0.6 0.2-1.0 complet or 017 mg/dL ed plasma 10:13 total bilirub in measure m Serum = 86 46-116 complet or 017 U/L ed plasma 10:13 alkalin e phospha tase ever Serum = 3.9 3.4-5.0 complet or 017 gm/dL ed plasma 10:13 albumin measure ment (mas Serum = 1.3 1.1-1.8 complet or 017 ed plasma 10:13 albumin /globul in mass ra
--- OUTSIDE RECORDS SUMMARY | 2016-12-13 10:27 | External Medical Summary Rpt | CCD ---
Author Author , ELIZABETH JOHNSON Address Unknown Phone [email or web address] Purpose Continuity of Care Document - 06-22-2016 [...] SQUARE METERS Comment: If this patient is -Ecuadorean, then multiply the Comment: result by 1.210. [...]
--- OUTSIDE RECORDS SUMMARY | 2016-12-13 10:28 | External Medical Summary Rpt ---
Author Author [facility]IZ[facility]ETH Box, [facility] [employer] Organization [facility] [employer] Address Unknown Phone Unavailable Results Comprehensive metabolic 2000 panel in Serum or Plasma Observa Value Referen Units Interpr Notes Date tion ce etation Range Albumin/G 1.1 - 1.8 No Normal No Nov 23 lobulin informati informati 2016 [Mass on in on in 10:13 AM ratio] in source source Serum or data data Plasma Albumin 3.4 - 5.0 gm/dL Normal No Nov 23 [Mass/vol informati 2016 ume] in on in 10:13 AM Serum or source Plasma data Alkaline 46 - 116 U/L Normal No Nov 23 phosphata informati 2016 se on in 10:13 AM [Enzymati source c data activity/ volume] in Serum or Plasma Bilirubin 0.2 - 1.0 mg/dL Normal No Nov 23 .total informati 2016 [Mass/vol on in 10:13 AM ume] in source Serum or data Plasma Urea 7 - 18 mg/dL High No Nov 23 nitrogen informati 2016 [Mass/vol on in 10:13 AM ume] in source Serum or data Plasma Calcium 8.5 - mg/dL Normal No Nov 23 [Mass/vol 10.1 informati 2016 ume] in on in 10:13 AM Serum or source Plasma data Chloride 98 - 107 mmoL/L Normal No Nov 23 [Moles/vo informati 2016 lume] in on in 10:13 AM Serum or source Plasma data Carbon 21.0 - mmoL/L Normal No Nov 23 dioxide, 32.0 informati 2016 total on in 10:13 AM [Moles/vo source lume] in data Serum or Plasma Creatinin 0.70 - mg/dL High No Nov 23 e 1.30 informati 2017 [Mass/vol on in 10:13 AM ume] in source Serum or data Plasma Estimated >60 ML/MIN No REFERENCE Nov 23 informati RANGE: 2017 glomerula on in >60 10:13 AM r source ML/MIN/1. filtratio data 73 SQUARE n rate METERSIf (GF this patient is -A merican, then multiply theresult by 1.210. Globulin 1.3 - 3.2 gm/dL Normal No Nov 23 [Mass/vol informati 2016 ume] in on in 10:13 AM Serum source data Glucose 74 - 106 mg/dL Normal No Nov 23 [Mass/vol informati 2016 ume] in on in 10:13 AM Serum or source Plasma data Potassium 3.5 - 5.1 mmoL/L Normal No Nov 232016 [Moles/vo on in 10:13 AM lume] in source Serum or data Plasma Sodium 136 - 145 mmoL/L Normal No Nov 23 [Moles/vo informati 2016 lume] in on in 10:13 AM Serum or source Plasma data Aspartate 15 - 37 U/L Normal No Nov 232016 aminotran on in 10:13 AM sferase source [Enzymati data c activity/ volume] in Serum or Plasma Alanine 12 - 78 U/L Normal No Nov 23 aminotran 2016 sferase on in 10:13 AM [Enzymati source c data activity/ volume] in Serum or Plasma Protein 6.4 - 8.2 gm/dL Normal No Nov 23 [Mass/vol informati 2016 ume] in on in 10:13 AM Serum or source Plasma data CBC W Auto Differential panel in Blood Observa Value Referen Units Interpr Notes Date tion ce etation Range Basophils 0 - 0.2 K/MM3 Normal No Oct 18 2016 5:30 [#/volume on in PM ] in source Blood by data Automated count Basophils 0.1 - 2.0 % Normal No Sep 18 / inform2016 5:30 leukocyte on in PM s in source Blood by data Automated count Eosinophi 0.0 - 0.4 K/mm3 Normal No Sep 18 ls informati 2016 5:30 [#/volume on in PM ] in source Blood by data Automated count Eosinophi 0.1 - % Normal No Sep 18 ls/100 12.0 informati 2016 5:30 leukocyte on in PM s in source Blood by data Automated count Granulocy 1.3 - 8.0 K/mm3 Normal No Sep 18 sapna informati 2016 5:30 [#/volume on in PM ] in source Blood by data Automated count Granulocy 37.0 - % Normal No Sep 18 sapna/100 80.0 informati 2017 5:30 leukocyte on in PM s in source Blood by data Automated count Hematocri 42.0 - % Low No Sep 18 t [Volume 52.0 informati 2016 5:30 on in PM Fraction] source of Blood data Hemoglobi 14.1 - g/dL Low No Sep 18 n 18.0 informati 2016 5:30 [Mass/vol on in PM ume] in source Blood data Lymphocyt 0.7 - 4.5 K/mm3 Normal No Sep 18 es informati 2016 5:30 [#/volume on in PM [...] No Sep 18 te mean 35.4 informati 2016 5:30 corpuscul on in PM ar source hemoglobi data n concentra tion [Mass/vol ume] by Automated count Erythrocy 82.2 - fl Low No Sep 18 te mean 97.8 informati 2016 5:30 corpuscul on in PM ar volume source [Entitic data volume] by Automated count Monocytes 0.1 - 1.0 K/mm3 Normal No Sep 18 informati 2016 5:30 [#/volume on in PM ] in source Blood by data Automated count Monocytes 1.7 - 9.3 % Normal No Sep 18 /100 informati 2016 5:30 leukocyte on in PM s in source Blood by data Automated count Platelet 7.4 - fl Normal No Sep 18 mean 10.4 informati 2016 5:30 volume on in PM [Entitic source volume] data in Blood by Automated count Platelets 142 - 424 K/mm3 Normal No Sep 18 informati 2016 5:30 [#/volume on in PM [...] Normal No Sep 18 s 10.8 informati 2017 5:30 [#/volume on in PM ] in source Blood data Basic metabolic panel in Blood Observa Value Referen Units Interpr Notes Date tion ce etation Range Urea 7 - 18 mg/dL High No Sep 8 nitrogen informati 2016 7:55 [Mass/vol on in AM ume] in [...] High No Sep 8 dioxide, 32.0 informati 2016 7:55 total on in AM [Moles/vo source lume] in data Serum or Plasma Creatinin 0.70 - mg/dL High No Sep 8 e 1.30 informati 2016 7:55 [Mass/vol on in AM ume] in [...] 5.1 mmoL/L Normal No Sep 8 informati 2016 7:55 [Moles/vo on in AM lume] in source Serum or data Plasma Sodium 136 - 145 mmoL/L Normal No Sep 8 [Moles/vo informati 2017 7:55 lume] in on in AM Serum or source Plasma data CBC W Auto Differential panel in Blood Observa Value Referen Units Interpr Notes Date tion ce etation Range Basophils 0 - 0.2 K/MM3 Normal No Sep 8 informati 2016 7:55 [#/volume on in AM ] in source Blood by data Automated count Basophils 0.1 - 2.0 % Normal No Sep 8 /100 informati 2016 7:55 leukocyte on in AM s in [...] K/mm3 Normal No Sep 8 sapna informati 2016 [...] No Sep 8 te mean 35.4 informati 2016 7:55 corpuscul on in AM ar source hemoglobi data n concentra tion [Mass/vol ume] by Automated count Erythrocy 82.2 - fl Low No Sep 8 te mean 97.8 informati 2016 7:55 corpuscul on in AM ar volume source [Entitic data volume] by Automated count Monocytes 0.1 - 1.0 K/mm3 Normal No Sep 8 informati 2016 7:55 [#/volume on in AM ] in source Blood by data Automated count Monocytes 1.7 - 9.3 % Normal No Sep 8 /100 informati 2016 7:55 leukocyte on in AM s in source Blood by data Automated count Platelet 7.4 - fl Normal No Sep 8 mean 10.4 informati 2016 7:55 volume on in AM [Entitic source volume] data in Blood by Automated count Platelets 142 - 424 K/mm3 No No Sep 8 informati informati 2016 7:55 [#/volume on in on in AM ] in source source Blood data data Erythrocy 4.6 - 6.2 M/mm3 Normal No Sep 8 sapna inform2016 7:55 [#/volume on in AM ] in [...] or Plasma RESU LTS CALLED TO: ADOLPH GORDON 08/02/16 1352 Boyers,Gretel corky Sodium 136 - 145 mmoL/L Normal No Aug 02 [Moles/vo informati 2016 lume] in on in 11:14 AM Serum or source Plasma data Aspartate 15 - 37 U/L Normal No Aug 02 informati 2016 aminotran on in 11:14 AM sferase source [Enzymati data c activity/ volume] in Serum or Plasma Alanine 12 - 78 U/L Normal No Aug 02 aminotran informati 2016 sferase on in 11:14 AM [Enzymati source [...] No June 22 min Estab. informati informati 2016 3:12 [Mass/vol on in on in PM ume] in source source Urine data data Albumin/C 0.0 - No No INFCE June 22 reatinine 30.0 informati informati Result 2017 3:12 [Mass on in on in Units: PM ratio] in source source mg/g Urine data data creatPerf ormed at: - [facility] [address] [id number] [address] [place], [place] [id number] Metal Filer: Richar Tomlinson PhD, Phone: [phone] Creatinin Not mg/dL No No June 22 e Estab. informati informati 2016 3:12 [Mass/vol on in on in PM [...] Normal No June 22 dioxide, 32.0 informati 2017 3:12 total on in PM [Moles/vo source lume] in data Serum or Plasma Creatinin 0.70 - mg/dL Normal No June 22 e 1.30 inform2016 3:12 [Mass/vol on in PM ume] in [...] 145 mmoL/L Normal No June 22 [Moles/vo informati [...] Normal No June 22 ol in LDL informati 2016 3:12 on in PM [Mass/vol source ume] in data Serum or Plasma by calculati on Triglycer 30 - 200 mg/dL Normal No June 22 mevlina 2016 3:12 [Moles/vo on in PM lume] in source Serum or data Plasma Cholester 0 - 40 No Normal No June 22 ol in informati inform2016 3:12 VLDL on in on in PM [...] - 2.0 % Normal No June 22 / inform2016 3:12 leukocyte on in PM s in source Blood by data Automated count Eosinophi 0.0 - 0.4 K/mm3 Normal No June 22 ls 2016 3:12 [#/volume on in PM ] in source Blood by data Automated count Eosinophi 0.1 - % Normal No June 22 ls/100 12.0 informati 2016 3:12 leukocyte on in PM s in source Blood by data Automated count Granulocy 1.3 - 8.0 K/mm3 High No June 22 sapna 2016 3:12 [#/volume on in PM ] [...] g/dL Normal No June 22 n 18.0 informati 2016 3:12 [Mass/vol on in PM ume] in source Blood data Lymphocyt 0.7 - 4.5 K/mm3 Normal No June 22 es 2016 3:12 [#/volume on in PM ] in source Unspecifi data ed specimen by Automated count Lymphocyt 10 - 50 % Normal No June 22 es informati 2016 3:12 [#/volume on in PM ] in source Unspecifi data ed specimen by Automated count Erythrocy 27 - 31.2 pg Normal No June 22 te mean informati 2016 3:12 corpuscul on in PM [...] Monocytes 0.1 - 1.0 K/mm3 Normal No June 22 informati 2016 3:12 [#/volume on in PM ] in source Blood by data Automated count Monocytes 1.7 - 9.3 % Normal No June 22 /100 informati [...]
--- OUTSIDE RECORDS SUMMARY | 2016-12-13 10:28 | External Medical Summary Rpt ---
[...] data data creatPerf ormed at: - [facility] [address] [id number] [address] [place], [place] [id number] Signal Tester: Richar Tomlinson PhD, Phone: [phone] Creatinin Not mg/dL No No June [...] 200 mg/dL Normal No June 22 melvina 2016 3:12 [Moles/vo on in PM lume] [...]
--- NOTE | 2016-12-13 11:01 | Urgent Treatment Center Report ---
See Addendum History of Present Issue Date/Time Seen by Provider 12/13/16 1100 Visit Reason Pt arrived:Walked Presenting Problem:PT C/O HEADACHE, BODY ACHES, VOMITING AND FEVER. Location if Accident: Onset of symptoms date/time:12/12/1606/24/1199 or onset unknown for: Have you (or family members/close friends) recently traveled outside the [place]? N If Yes, where/when: Have you had exposure to infectious disease within the past month? TB? Other? Specify: c/o feeling feverish, aches, chills, mild headache, vomiting, stomach cramping. Symptoms started suddenly late yesterday. Vomited just twice so far, last time early AM. Hasn't taken or tried anything for symptoms. No diarrhea "but my stomach feels like I could". Reports an "ok" appetite. Several people w/ same symptoms at work. Missed work last night, requesting work excuse and requesting two additional days so he can use STD/FMLA. Source patient Exam Limitations no limitations ALLERGIES Coded Allergies: No Known Allergies (06/07/16) Home Medications Active Scripts Prednisone (Prednisone 20MG) 20 MG PO BID 5 Days Prov: 11/15/16 History Medical History General CAD? No Angina: No NV: No Hypertension? Yes Hyperlipidemia? No CHF? No DVT? No PE? No COPD? No Asthma? No Anemia? No GERD? No Gastric ulcers? No GI Bleed? No Hernia? No Thyroid Problems? No Hypothyroidism? No CVA? No Seizures? No Diabetes? No Renal Insuffiency? No UTI? No Stones? No BPH? No GB Disease: No Nephritic Syndrome? No Asplenia? No Hepatitis? No Sickle Cell Disease? No Arthritis? No Migraines? No Cataracts? No Glaucoma? No MRSA? No HIV? No TB? No Anxiety? No Depression? No Cancer? No More? No Additional hx: pt denying hx of gout to COURT BAILIFF OR SHERIFF Immunization HX DT/Tetanus Unknown Flu Refused Pneumonia Refuses Surgical Hx Previous Surgery?Y R KNEE ORTHOSCOPY Family History Family HX Diabetes No CAD No Hypertension No Hyperlipidemia No Cancer No TB No Social History Smoking Hx Smoker: Never Smoker Tobacco: No Alcohol Alcohol: No Review of Systems All Other Systems Reviewed and Negative Constitutional see HPI, denies weakness Eyes denies drainage ENT nose discharge. denies: ear pain, nose congestion, throat pain. Respiratory denies cough Cardiovascular denies chest pain Gastrointestinal see HPI Genitourinary denies: dysuria, frequency, hesitancy, hematuria. Musculoskeletal see HPI, denies back pain Skin denies rash Psychiatric/Neurological see HPI, denies other (confusion, dizziness) Physical Exam Vital Signs Vital Signs Date Time Temp Pulse Resp B/P Pulse O2 O2 Flow FiO2 Ox Delivery Rate 12/13 1029 97.9 91 18 144/107 96 General Appearance normal appearance, no apparent distress Eye Exam - bilateral eye normal exam Ear, Nose, Throat normal ENT inspection Neck non-tender, supple Respiratory Status No: respiratory distress, productive cough, non productive cough. Lung Sounds anterior: lungs clear. posterior: lungs clear. bilateral: lungs clear. Cardiovascular regular rate/rhythm, no peripheral edema, no murmur Gastrointestinal normal bowel sounds, non tender, soft, no organomegaly, no pulsatile mass, no guarding, no rebound Back no CVA tenderness Neurologic alert, oriented x 3 Skin normal color, warm/dry Lymphatic no adenopathy Medical Decision Making LABS/Meds/Orders Pt receiving controlled substance in ED? No Results/Orders Current Medication Orders Sig/Feliciano Start time Last Medication Dose Route Stop Time Status Admin Ondansetron HCl 4 MG ONCE ONE 12/13 1130 AC 12/13 SL 12/13 1131 1125 Ondansetron HCl 0 .STK-MED ONE 12/13 1125 DC .ROUTE Departure Departure Time of Disposition 1123 Disposition DC Home or Self Care(routine) Clinical Impression Primary Impression: Viral gastroenteritis Secondary Impressions: High blood pressure Qualifiers: Hypertension type: unspecified Qualified Code: I10 - Essential ( primary) hypertension Condition STABLE Referrals Jasbir Lake MD (Family) IMMEDIATELY for new or worsening symptoms OR no noticeable improvement over the next 48 hours but encourage you to schedule a follow up due to your elevated blood pressure Patient Instructions DI for High Blood Pressure, DI for Viral Gastroenteritis -- Adult Additional Instructions * Monitor Temp. Seek treatment if fever develops. * Follow up immediately for new or worsening symptoms OR no noticeable improvement over the next 48 hours. * Increase fluids. Water, gatorade, powerade, juice OR pedialyte with limited formula/dairy in children. * No food is ok as long as you or your child is drinking. Once ready to eat, start bland. bananas, rice, applesauce, toast * Contagious until no diarrhea, vomiting, fever x 24 hours without medication * If diarrhea starts, Avoid anti-diarrheals unless told otherwise. Best to let the virus run its course. * Zofran as needed for nausea or vomiting. you had a dose in clinic so wait 8 hours before next dose. Follow up IMMEDIATELY for new or worsening symptoms OR no noticeable improvement over the next 48 hours AND for your high blood pressure today. Discharge Counseling Counseled pt/family regarding diagnosis, medications/RX, home care, follow up needs Prescriptions Current Visit Scripts Ondansetron (Zofran 4MG Odt) 4 MG SL Q8HP PRN nausea or vomiting #9 ODT Comments work excuse for last night and tonight. No excuse for Tuesday night at this time. Pt will have to touch base tomorrow with how he is doing before any further excuses can be provided as most symptoms do not last that long and he should be able to return to work unless still symptomatic. at 0441
[2016-12-13] MEDS ORDERED: ZOFRAN ODT4 MG SL (11:25)
[2016-12-13 11:34] VITALS: BP 144/107
== END 2016-12-13 11:36 | disposition home or self-care (01) ==
LOC: UTC 10:22
DX: A08.4 Viral intestinal infection, unspecified (principal); I10 Essential (primary) hypertension